=== PATIENT | female | born 1935 | race African-American/Black ===

== ENCOUNTER 2016-08-07 11:28 | Day surgery (SDC) | payer MEDICARE, BC ==
[2016-08-04 09:50] LABS: BASOPHILS 0.2 %; BASOPHILS ABSOLUTE 0.01 10/3/uL (0.0-0.16); EOSINOPHILS 2.4 %; EOSINOPHILS ABSOLUTE 0.14 10/3/uL (0.0-0.53); HEMATOCRIT 33.5 % (36.0-48.0); HEMOGLOBIN 11.4 g/dL (12.0-16.0); IMMATURE GRANULOCYTES 0.2 %; IMMATURE GRANULOCYTES ABSOLUTE 0.01 10/3/uL (0.0-0.11); LYMPHOCYTES ABSOLUTE 1.51 10/3/uL (0.67-4.30); MEAN CORPUSCULAR HEMOGLOB 28.9 pg (26.0-34.0); MEAN CORPUSCULAR VOLUME 84.8 fL (80-100); MEAN PLATELET VOLUME 11.1 fL (9.2-13.0); MONOCYTES 7.7 %; MONOCYTES ABSOLUTE 0.45 10/3/uL (0.21-1.20); NEUTROPHILS 63.5 %; NEUTROPHILS ABSOLUTE 3.69 10/3/uL (2.02-8.40); PLATELET COUNT 262 10/3/uL (150-400); RBC DISTRIBUTION WIDTH 14.6 % (12.0-16.0); RED CELL COUNT 3.95 10/6/uL (4.0-5.6); WHITE BLOOD CELLS 5.8 10/3/uL (4.5-10.5)
[2016-08-04 09:54] LABS: MANUAL DIFF NO %
[2016-08-04 10:01] LABS: CALCIUM, SERUM 9.2 MG/DL (8.5-10.4); CHLORIDE, SERUM 110 MMOL/L (96-112); CO2 (CARBON DIOXIDE) 28 MMOL/L (24-34); CREATININE 1.01 MG/DL (0.55-1.02); GFR AFRICAN AMERICAN 60 ML/MIN (>=60); GFR NON AFRICAN AMERICAN 52 ML/MIN (>=60); POTASSIUM, SERUM 4.8 MMOL/L (3.5-5.3); SODIUM, SERUM 142 MMOL/L (135-148)
[2016-08-04 10:06] LABS: BUN (BLOOD UREA NITROGEN) 29 MG/DL (6-23); GLUCOSE, SERUM 138 MG/DL (60-99)
--- NOTE | ~2016-08-07 | OP ---
Record Of Operation [facility] [address] [place]. [address] NAME: ARLENE KAYE : 31 [place] [facility] [place] [id number] AGE: 80 ADM/REG DATE : 08/07/16 MR#: [id number] REPORT SERV DATE: 08/07/16 DICTATED BY: JEZ GUTIERREZ DATE: 08/07/16 REPORT STATUS : Draft TRANSCRIBED BY: MODL DATE: 08/07/16 DATE OF PROCEDURE: 08/07/2016 PREPROCEDURE DIAGNOSIS: Severe claudication, left lower extremity, moderate right. POSTOPERATIVE DIAGNOSES: 1. Multilevel proximal and mid SFA obstructive pattern. 2. 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 PROCEDURE PERFORMED: 1. Abdominal aortogram with bilateral pelvic and lower extremity runoff. 2. Atherectomy of the left superficial femoral artery with a 2.2 Atalissa catheter secondary to angioplasty with 4 x 220 balloon. 3. Angioplasty of the right common femoral artery with 7 x 2 cutting balloon, multiple. 4. Drug-eluting stent therapy to the right common femoral artery stent, 7 x 4. ANESTHESIA: Local, MAC. COMPLICATIONS: None. INDICATION FOR PROCEDURE: Secondary to this very pleasant 80-year-old female presenting with evidence of severe claudication symptoms of the lower extremities, recommendation was made for arteriography to further define her peripheral vascular system and repair this if appropriate. Risks and benefits were discussed. Consent was obtained. DETAILS OF PROCEDURE: The patient was brought to the endovascular operating room, placed in supine position, prepped and draped in routine sterile fashion with attention to the bilateral groin region. The right common femoral artery proximal was then cannulated with micropuncture needle followed by a wire and sheath. The catheter was then advanced to the abdominal aorta and a 6-Vincentian sheath was then placed. Esmond flush catheter was advanced to the level of L3. AP abdominal aortogram was performed showing evidence of widely patent common and external iliac arteries bilaterally. The left common iliac artery had a stent and that was noted to be patent. Next, catheter was advanced from the right side to the left femoral. Arteriogram demonstrated widely patent common femoral artery, profunda femoral artery, and patent superficial femoral artery with multilevel obstruction in the proximal and mid segment. Catheter was advanced past this area and an arteriogram distally was noted to be widely patent with good runoff. The middle-sided SFA was then atherectomized with a Atalissa 2.2 catheter followed by a 4 x 220 balloon angioplasty of this segment, adequately reconstructing this segment over two-minute period. Completion imaging showed rapid flow through the SFA and popliteal segment. Catheter was then pulled back to the right femoral artery. Arteriogram demonstrated a stenosis in the right SFA stent and this was then angioplastied with a 7 x 2 cutting balloon multiple times with good resolution of the stenosis. This was intimal hyperplasia and therefore, a drug-eluting balloon was then utilized, 7 x 4, performed drug-eluting angioplasty in this area for two-minute duration. When this was completed, there was excellent flow. Wires, catheters, and sheaths were then removed. The right groin was then closed with a StarClose. The patient tolerated Record Of Operation [address] [place]. [address] NAME: ARLENE KAYE : 31 [place] [facility] [place] [id number] AGE: 80 ADM/REG DATE : 08/07/16 MR#: [id number] REPORT SERV DATE: 08/07/16 DICTATED BY: JEZ GUTIERREZ DATE: 08/07/16 REPORT STATUS : Draft TRANSCRIBED BY: ILYA DATE: 08/07/16 the procedure well. CL/ILYA Jez Gutierrez M.D. / [id number] CC: Jono Blair M.D.
[~2016-08-07 11:28] MED LIST: APRES50 PO; ASAB PO; AT10 PO; BYSTOLIC10 MG PO; CRESTOR5 MG PO; EXFORGE1 TA1 PO; HYGROTON 25 MG25 MG PO; KLOR-CON M2020 MEQ PO; L80 PO; LOP50 PO; NOVLOGPUMP; OMEGA PO; OPTIVE1 ML OP; PLAVIX PO; PLETAL50 PO; SINGULAIR1 PO; SPIRO50 PO; VITAMIN D31000 UNIT PO; ZETIA PO
[2016-08-08 05:25] LABS: HEMATOCRIT 33.3 % (36.0-48.0); HEMOGLOBIN 11.2 g/dL (12.0-16.0); MEAN CORPUS HGB CONC 33.6 g/dL (32.0-36.0); MEAN CORPUSCULAR HEMOGLOB 28.3 pg (26.0-34.0); MEAN CORPUSCULAR VOLUME 84.1 fL (80-100); PLATELET COUNT 255 10/3/uL (150-400); RED CELL COUNT 3.96 10/6/uL (4.0-5.6); WHITE BLOOD CELLS 7.3 10/3/uL (4.5-10.5)
[2016-08-08 05:27] LABS: MANUAL DIFF NO %
[2016-08-08 05:31] LABS: BUN (BLOOD UREA NITROGEN) 31 MG/DL (6-23); CALCIUM, SERUM 9.3 MG/DL (8.5-10.4); CHLORIDE, SERUM 112 MMOL/L (96-112); CO2 (CARBON DIOXIDE) 25 MMOL/L (24-34); CREATININE 0.91 MG/DL (0.55-1.02); GFR AFRICAN AMERICAN 68 ML/MIN (>=60); GFR NON AFRICAN AMERICAN 59 ML/MIN (>=60); GLUCOSE, SERUM 126 MG/DL (60-99); POTASSIUM, SERUM 4.2 MMOL/L (3.5-5.3); SODIUM, SERUM 145 MMOL/L (135-148)
== END 2016-08-08 12:50 | disposition home or self-care (01) ==
LOC: SDC 11:28 → SSU1 16:51
PROVIDERS: Specialist
PROC: B40DYZZ Plain Radiography of Aorta and Bilateral Lower Extremity Arteries using Other Contrast (ICD-10-PCS; principal; 2016-08-07 13:30)
PROC: 04CL3ZZ Extirpation of Matter from Left Femoral Artery, Percutaneous Approach (ICD-10-PCS; 2016-08-07 13:30)
PROC: 047L34Z Dilation of Left Femoral Artery with Drug-eluting Intraluminal Device, Percutaneous Approach (ICD-10-PCS; 2016-08-07 13:30)
DX: I70.213 Atherosclerosis of native arteries of extremities with intermittent claudication, bilateral legs (principal); T82.856A Stenosis of peripheral vascular stent, initial encounter; I25.10 Atherosclerotic heart disease of native coronary artery without angina pectoris; I11.0 Hypertensive heart disease with heart failure; I50.9 Heart failure, unspecified; E78.00 Pure hypercholesterolemia, unspecified; E11.51 Type 2 diabetes mellitus with diabetic peripheral angiopathy without gangrene; G47.33 Obstructive sleep apnea (adult) (pediatric); K21.9 Gastro-esophageal reflux disease without esophagitis; Z86.73 Personal history of transient ischemic attack (TIA), and cerebral infarction without residual deficits; Z95.5 Presence of coronary angioplasty implant and graft; Z88.8 Allergy status to other drugs, medicaments and biological substances; Z91.018 Allergy to other foods; Z79.82 Long term (current) use of aspirin; Z79.02 Long term (current) use of antithrombotics/antiplatelets; Z79.4 Long term (current) use of insulin; Z79.899 Other long term (current) drug therapy; Z98.41 Cataract extraction status, right eye; Z98.42 Cataract extraction status, left eye; Z96.1 Presence of intraocular lens; Z95.820 Peripheral vascular angioplasty status with implants and grafts; Z85.42 Personal history of malignant neoplasm of other parts of uterus; Z90.710 Acquired absence of both cervix and uterus; Z96.41 Presence of insulin pump (external) (internal); Z98.890 Other specified postprocedural states
CPT/HCPCS: 37224; 37225; 75625; 75716; 80048; 82962; 85025; 93005; A9270-GY; C1725; C1769; C1894; J0360; J3010; Q9967